=== PATIENT | male | born 1995 | race Caucasian/White ===

== ENCOUNTER → 2021-04-20 15:50 | Outpatient (CLI) | payer OTHER, SELFPAY ==
--- NOTE | ~2021-04-20 | CT_ITS ---
EXAMINATION: CT sinus wo con DATE: 04/20/2021 16:03 INDICATION: Chronic sinusitis. TECHNIQUE: Computed tomography (CT) of the paranasal sinuses was performed without contrast. Iterativ e reconstruction technique was employed. Exam dose: 269.39 mGy-cm total exam DLP. COMPARISON: None FINDINGS: The nasal septum is nearly midline, pooling very slightly to the left. Intralamellar cell of both middle nasal turbinates. There is patchy opacification of the ethmoid air cells. The paranasal sinuses and mastoid air cells are otherwise normally developed and aerated. IMPRESSION: Status post septoplasty by clinical history Mild intralamellar cell of both middle nasal turbinates Mild patchy opacification of ethmoid air cells Reviewed, dictated and finalized at [facility] Reviewed, dictated and finalized at [facility].
== END ==
PROVIDERS: Visit Provider Otolaryngology
DX: J32.9 Chronic sinusitis, unspecified (principal)
CPT/HCPCS: 70486

== ENCOUNTER 2023-05-21 08:11 | Emergency (ER) | payer OTHER, SELFPAY ==
[2023-05-21 08:25] VITALS: BP 148/97; PULSE 99; RESP 18; TEMP 36; O2SAT 98
--- NOTE | 2023-05-21 08:42 | ED.URI ---
HPI - URI/Sore Throat General Chief Complaint: Eye Problems Stated Complaint: left eye irritated Time Seen by Provider: 05/21/23 08:32 Source: patient and RN notes reviewed Mode of arrival: ambulatory Limitations: no limitations History of Present Illness HPI Narrative: Patient presents today with a 2 day history of cough and postnasal drainage with left eye crusting and irritation that started this morning. Patient has a child at home that was diagnosed with pinkeye yesterday. He has been using Zyrtec, Flonase, DayQuil, and NyQuil with mild relief. He wears glasses, but no contacts. Related Data Home Medications Medication Instructions Recorded Confirmed cetirizine 10 mg tablet (Zyrtec) 10 mg PO DAILY 05/21/23 05/21/23 fluticasone propionate 50 2 spray intranasal DAILY 05/21/23 05/21/23 mcg/actuation nasal spray,suspension Allergies Allergy/AdvReac Type Severity Reaction Status Date / Time Penicillins Allergy Mild RASH Verified 05/21/23 08:16 Review of Systems Review of Systems: CONSTITUTIONAL: Denies body aches, fever, chills, or sweats. EYES: Denies visual changes, or discharge.+ left eye redness and irritation ENT: Denies rhinorrhea, congestion, sore throat, or otalgia.+ postnasal drip CARDIOVASCULAR: Denies chest pain, palpitations, or edema. RESPIRATORY: Denies dyspnea.+ cough GASTROINTESTINAL: Denies abdominal pain, nausea, vomiting, or diarrhea. GENITOURINARY: Denies dysuria or hematuria. SKIN: Denies rash, itching, or wounds. MUSCULOSKELETAL: Denies back pain, joint pain, or myalgia. NEUROLOGIC: Denies headache, numbness, tingling, or weakness. PSYCH: Denies depression or anxiety. PMFSH Comments At time of signature, I have reviewed and agree with nursing past medical, surgical, social and family history unless otherwise noted. Please see nursing chart for further information. There is no relevant family history pertinent to the presenting complaint Exam Narrative: GENERAL: Well-appearing, well-nourished, and in no acute distress. HEAD: Normocephalic, atraumatic. EYES: EOMI. PERRL. Right eye normal. Left eye: Slightly injected conjunctiva. No active drainage. Lids and lashes normal. ENT: Mucous membranes pink and moist. Nares mildly congested. No rhinorrhea. TMs normal bilaterally. Throat normal. Uvula midline. NECK: Normal AROM. Supple. No lymphadenopathy. CHEST: No respiratory distress. Clear to auscultation. HEART: Regular rate and rhythm. No murmur appreciated. Normal peripheral pulses. EXTREMITIES: Normal range of motion. No edema. SKIN: Warm, dry, no rash. Capillary refill normal. Normal skin turgor. NEURO: No focal deficits. Alert and oriented x3. Gait steady. PSYCH: Normal affect. No signs of depression or anxiety. Course Course Level of Care: Express Care Visit Vital Signs Vital signs: Vital Signs Temperature 96.8 F L 05/21/23 08:25 Pulse Rate 99 05/21/23 08:25 Respiratory Rate 18 05/21/23 08:25 Blood Pressure 148/97 H 05/21/23 08:25 Pulse Oximetry 98 05/21/23 08:25 Oxygen Delivery Room Air 05/21/23 08:25 Temperature 96.8 F L 05/21/23 08:25 Pulse Rate 99 05/21/23 08:25 Respiratory Rate 18 05/21/23 08:25 Blood Pressure 148/97 H 05/21/23 08:25 Pulse Oximetry 98 05/21/23 08:25 Oxygen Delivery Room Air 05/21/23 08:25 Reviewed. Pt has been instructed to follow up with his PCP regarding his elevated blood pressure today. MDM - URI/Sore Throat MDM Narrative Medical decision making narrative: Patient's URI symptoms are likely viral in etiology. Will treat patient's conjunctivitis with eyedrops as he has had exposure at home. No testing indicated at this time. Anticipatory guidance given. Differential Diagnosis Differential diagnosis: Likely upper respiratory infection, sinusitis, viral infection, bronchitis and other (Conjunctivitis) Critical Care Time Critical Care Time Critical Care Time: No Discharge Oscar
== END 2023-05-21 08:51 | disposition home or self-care (01) ==
PROVIDERS: Emergency Provider Nurse Practitioner
DX: J06.9 Acute upper respiratory infection, unspecified (principal); H10.32 Unspecified acute conjunctivitis, left eye
CPT/HCPCS: 99213; G0463

== ENCOUNTER 2023-05-23 15:31 | Emergency (ER) | payer OTHER, SELFPAY ==
[2023-05-23 15:45] VITALS: BP 145/85; PULSE 90; RESP 16; TEMP 36.7; O2SAT 98
--- NOTE | 2023-05-23 16:05 | ED.EAR ---
HPI - Ear Problem General Chief complaint: Ear Stated complaint: left ear stopped up Source: patient Mode of arrival: ambulatory Limitations: no limitations History of Present Illness HPI Narrative: 28-year-old male presents to [facility] with complaints of left ear pressure and clogged sensation for the past 2 days. Patient reports he was evaluated here 2 days ago, diagnosed with conjunctivitis and was prescribed Polytrim at that time. Patient reports that eye symptoms have since improved. Patient denies fever, body aches, chills, nausea vomiting or diarrhea. Patient has not tried taking any [id number] medications for his symptoms. MD Complaint: ear pain Location: left ear Duration: constant Severity: mild Relieving factors: nothing Exacerbating factors: nothing Discharge from ear: Reports no Related Data Home Medications Medication Instructions Recorded Confirmed cetirizine 10 mg tablet (Zyrtec) 10 mg PO DAILY 05/21/23 05/21/23 fluticasone propionate 50 2 spray intranasal DAILY 05/21/23 05/21/23 mcg/actuation nasal spray,suspension Allergies Allergy/AdvReac Type Severity Reaction Status Date / Time Penicillins Allergy Mild RASH Verified 05/23/23 16:05 Review of Systems Constitutional: Constitutional: Denies chills, Denies fatigue, Denies fever(s) and Denies weakness ENT: Denies dizziness, Denies epistaxis and Denies nasal congestion Comments: Left ear pressure Cardiovascular: Cardiovascular: Denies chest pain Respiratory: Respiratory: Denies chest congestion, Denies cough, Denies dyspnea and Denies wheezing Gastrointestinal: Gastrointestinal: Denies diarrhea, Denies nausea and Denies vomiting Musculoskeletal: Musculoskeletal: Denies arthralgias, Denies joint swelling and Denies muscle cramps Integumentary/Breasts: Skin/Breast: Denies pruritus, Denies erythema and Denies rash Neurologic: Denies vertigo, Denies dizziness, Denies syncope and Denies headache(s) PMFSH Comments At time of signature, I agree with nursing past medical, surgical, social and family history. There is no relevant family history pertinent to the presenting complaint. Exam Const: General: healthy appearing and no acute distress Nutritional Appearance: well nourished Orientation/consciousness: patient oriented x3 Limitations: no limitations HENMT: Head: normal to inspection Ears: Abnormal EAC present erythema and TM abnormal dull on the left and erythematous on the left Face/Nose/Sinus: Normal external nose present and Normal nares present Mouth: Yes Normal oral and palatal mucosa present and Yes moist mucous membranes Teeth and gingiva: dentition normal Throat: posterior oropharynx normal and uvula midline Eyes: Conjunctivae: conjunctivae normal Neck: Neck: normal visual inspection Resp: Effort & Inspection: normal respiratory effort and not labored Auscultation: clear to auscultation bilaterally, no crackles, no rales, no rhonchi and no wheezes Cardio: Rate: regular rate Rhythm: regular rhythm Heart sounds: no murmurs Skin: General skin exam: normal color Rashes: no rashes Neuro: General: patient oriented x3 Speech: normal speech Psych: Affect: normal affect Attitude: cooperative Course Course Level of Care: Express Care Visit Medical Decision Making MDM Narrative Medical decision making narrative: patient agrees to take oral antibiotic and use eyedrops as prescribed. encouraged patient to alternate Motrin and Tylenol as needed. encouraged patient to follow-up with primary care provider if symptoms are improved. Encouraged patient to avoid getting water in left ear Differential Diagnosis Differential Diagnosis: Cerumen impaction, viral illness, acute otalgia Critical Care Time Critical Care Time Critical Care Time: No Discharge Plan Discharge Clinical Impression: Otitis externa Qualifiers: Otitis externa type: unspecified type Chronicity: acute Laterality: left Q
== END 2023-05-23 16:17 | disposition home or self-care (01) ==
PROVIDERS: Emergency Provider Nurse Practitioner Family
DX: H60.502 Unspecified acute noninfective otitis externa, left ear (principal); H66.92 Otitis media, unspecified, left ear
CPT/HCPCS: 99213; G0463

== ENCOUNTER 2023-06-20 11:03 | Emergency (ER) | payer OTHER, SELFPAY ==
[2023-06-20 11:16] VITALS: BP 138/18; PULSE 96; RESP 16; TEMP 37.6; O2SAT 98
--- NOTE | 2023-06-20 12:07 | ED.URI ---
HPI - URI/Sore Throat General Chief Complaint: Upper Respiratory Infection Stated Complaint: ear pain not able to hear well,sinus pressure Time Seen by Provider: 06/20/23 11:57 Source: patient and RN notes reviewed Mode of arrival: ambulatory Limitations: no limitations History of Present Illness HPI Narrative: Patient presents today complaining of 5 day history of cough and postnasal drainage. He started developing muffled hearing in the right ear this morning. He has been taking DayQuil and NyQuil with mild relief. He does have a child sick at home with an upper respiratory infection. Related Data Home Medications Medication Instructions Recorded Confirmed cetirizine 10 mg tablet (Zyrtec) 10 mg PO DAILY 05/21/23 05/21/23 fluticasone propionate 50 2 spray intranasal DAILY 05/21/23 05/21/23 mcg/actuation nasal spray,suspension Allergies Allergy/AdvReac Type Severity Reaction Status Date / Time Penicillins Allergy Mild RASH Verified 06/20/23 11:13 Review of Systems Review of Systems: CONSTITUTIONAL: Denies body aches, fever, chills, or sweats. EYES: Denies visual changes, redness, or discharge. ENT: Denies rhinorrhea, congestion, sore throat. + postnasal drip, muscle tearing right. CARDIOVASCULAR: Denies chest pain, palpitations, or edema. RESPIRATORY: Denies dyspnea.+ cough GASTROINTESTINAL: Denies abdominal pain, nausea, vomiting, or diarrhea. GENITOURINARY: Denies dysuria or hematuria. SKIN: Denies rash, itching, or wounds. MUSCULOSKELETAL: Denies back pain, joint pain, or myalgia. NEUROLOGIC: Denies headache, numbness, tingling, or weakness. PSYCH: Denies depression or anxiety. PMFSH Comments At time of signature, I have reviewed and agree with nursing past medical, surgical, social and family history unless otherwise noted. Please see nursing chart for further information. There is no relevant family history pertinent to the presenting complaint Exam Narrative: GENERAL: Well-appearing, well-nourished, and in no acute distress. HEAD: Normocephalic, atraumatic. EYES: EOMI. No redness or drainage. Conjunctivae normal. ENT: Mucous membranes pink and moist. Nares clear. No rhinorrhea. Left TM normal. Right TM erythematous and bulging.. Throat normal. Uvula midline. NECK: Normal AROM. Supple. No lymphadenopathy. CHEST: No respiratory distress. Clear to auscultation. HEART: Regular rate and rhythm. No murmur appreciated. Normal peripheral pulses. EXTREMITIES: Normal range of motion. No edema. SKIN: Warm, dry, no rash. Capillary refill normal. Normal skin turgor. NEURO: No focal deficits. Alert and oriented x3. Gait steady. PSYCH: Normal affect. No signs of depression or anxiety. Course Course Level of Care: Express Care Visit Vital Signs Vital signs: Vital Signs Temperature 99.7 F H 06/20/23 11:16 Pulse Rate 96 06/20/23 11:16 Respiratory Rate 16 06/20/23 11:16 Blood Pressure 138/18 L 06/20/23 11:16 Pulse Oximetry 98 06/20/23 11:16 Oxygen Delivery Room Air 06/20/23 11:16 Temperature 99.7 F H 06/20/23 11:16 Pulse Rate 96 06/20/23 11:16 Respiratory Rate 16 06/20/23 11:16 Blood Pressure 138/18 L 06/20/23 11:16 Pulse Oximetry 98 06/20/23 11:16 Oxygen Delivery Room Air 06/20/23 11:16 Reviewed MDM - URI/Sore Throat MDM Narrative Medical decision making narrative: Patient's symptoms and exam consistent with an upper respiratory infection with right otitis media. Will treat with cefdinir. Discussed [id number] treatment as well for symptoms. Anticipatory guidance given. Differential Diagnosis Differential diagnosis: Likely upper respiratory infection, otitis media, viral infection and bronchitis Critical Care Time Critical Care Time Critical Care Time: No Discharge Plan Discharge Clinical Impression: Upper respiratory infection Qualifiers: URI type: unspecified URI Qualified Code(s): J06.9 - Acute upper respiratory infecti
== END 2023-06-20 12:15 | disposition home or self-care (01) ==
PROVIDERS: Emergency Provider Nurse Practitioner
DX: J06.9 Acute upper respiratory infection, unspecified (principal); H66.001 Acute suppurative otitis media without spontaneous rupture of ear drum, right ear
CPT/HCPCS: 99213; G0463